=== PATIENT | male | born 1950 | race Caucasian/White ===

== ENCOUNTER → 2022-04-10 11:46 | Outpatient (CLI) | payer MEDICARE, SELFPAY ==
--- NOTE | ~2022-04-10 | MR_ITS ---
MRI of the left knee Clinical history: Pain Technique: Coronal proton density and proton density-weighted images, sagittal proton-density and T2 fat-sat images, and axial proton-density fat-saturated images were acquired. Findings: Anterior and posterior cruciate ligament are intact. Medial collateral ligament and the lat eral collateral ligament complex are intact. Popliteus tendon is intact. Medial and lateral menisci are intact, without evidence of tear. Articular cartilage is well preserved in all 3 joint compartments. Bone marrow signals are unremarkab le. Extensor mechanism is intact. There is no significant joint effusion, and no Alfred's cyst. Varicose v ein noted at the posterior medial aspect of the knee. There is minimal prepatellar subcutaneous soft tissue edema, nonspecific. Impression: Minimal prepatellar subcutaneous soft tissue edema, nonspecific. Varicose vein, as noted above. No other significant findings. Reviewed, dictated and finalized at [facility]. [employer] Impression: Minimal prepatellar subcutaneous soft tissue edema, nonspecific. Varicose vein, as noted above. No other significant findings.
== END ==
PROVIDERS: PCP Family Medicine; Visit Provider Orthopaedic Surgery
DX: M25.562 Pain in left knee (principal); I83.92 Asymptomatic varicose veins of left lower extremity
CPT/HCPCS: 73721

== ENCOUNTER 2023-09-13 06:53 | Outpatient (CLI) | payer MEDICARE, SELFPAY ==
--- NOTE | ~2023-09-13 | MR_ITS ---
EXAMINATION: MR lumbar spine wo con DATE: 09/13/2023 07:20 INDICATION: Left lower limb pain. Lumbar spinal stenosis. TECHNIQUE: Magnetic resonance imaging (MRI) of the lumbar spine was performed without intravenous con trast. Sequences included sagittal T2-weighted FSE, sagittal T2-weighted FS FSE, sagittal T1-weighted FSE, and axial T2-weighted FSE. COMPARISON: None FINDINGS: 5 mm retrolisthesis L5 on S1. Vertebral body heights are normal. 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 Otherwise normal marrow signal. Severe disc height loss with degenerative endplate re modeling at L5-S1. Moderate disc height loss at L1-L2 and L4-L5. Mild disc height loss at remaining d iscs from T11-T12 through L3-L4. The conus medullaris terminates at L1-L2. There is normal signal in the caudal spinal cord. Paravertebral soft tissues are unremarkable. The following disc levels are sp ecifically discussed: T12-L1: Disc is mildly bulging. There is moderate right and moderate left facet joint osteoarthritis. There is no neural foraminal stenosis. There is minimal central canal stenosis. L1-L2: Diffuse disc bulge. There is mild right and mild to moderate left facet joint osteoarthritis. There is mild bilateral neural foraminal stenosis. There is mild central canal stenosis. L2-L3: Disc is mildly bulging. There is moderate bilateral facet joint osteoarthritis. There is mild right and mild to moderate left neural foraminal stenosis. There is mild central canal stenosis. L3-L4: Diffuse disc bulge with superimposed annular fissure. There is severe bilateral facet joint os teoarthritis. There is altered left and mild to moderate right neural foraminal stenosis. There is mi ld central canal stenosis and mild narrowing of the left and right lateral recesses. L4-L5: Disc is bulging with annular fissure. There is moderate to severe bilateral facet joint osteoa rthritis. There is moderate bilateral neural foraminal stenosis. There is mild central canal stenosis with moderate narrowing of the left and right lateral recesses. L5-S1: Disc is bulging with annular fissure. There is moderate to severe bilateral facet joint osteoa rthritis. There is moderate left and moderate to severe right neural foraminal stenosis. There is min imal central canal stenosis but with mild to moderate the left and right lateral recesses. IMPRESSION: 1. Severe lumbar spondylosis. Reviewed, dictated and finalized at location [facility].
== END 2023-09-13 06:54 ==
PROVIDERS: PCP Family Medicine; Visit Provider Orthopaedic Surgery
DX: M43.06 Spondylolysis, lumbar region (principal); M79.605 Pain in left leg
CPT/HCPCS: 72148